=== PATIENT | female | born 1985 | race Caucasian/White ===

== ENCOUNTER 2017-07-05 12:09 | Emergency (ER) | payer MEDICAID ==
[~2017-07-05] VITALS: Ht 172.7 cm; Wt 81.8 kg
[2017-07-05 12:13] VITALS: BP 165/132
== END 2017-07-05 13:47 | disposition home or self-care (01) ==
LOC: ED 13:41
DX: Z00.01 Encounter for general adult medical examination with abnormal findings (principal); T76.21XA Adult sexual abuse, suspected, initial encounter; I10 Essential (primary) hypertension; Y04.8XXA Assault by other bodily force, initial encounter
CPT/HCPCS: 99283